=== PATIENT | female | born 1995 | race Caucasian/White ===

== ENCOUNTER 2018-01-24 09:23 | Inpatient (IN) | payer BC ==
[2018-01-24] MEDS ORDERED: Ondansetron 4 MG/2 ML SDV IVPUSH PRN ×2 (12:05→15:29)
[2018-01-24] MEDS ORDERED: Nalbuphine 20 MG/ML 1 ML Syringe IVPUSH PRN (12:05)
[2018-01-24] MEDS ORDERED: Sodium Chloride 0.9% 10 ML Syringe FLUSH PRN (12:05)
--- NOTE | 2018-01-24 12:07 | PCM.LDHP ---
L&D History of Present Illness - General Date of Service: 01/24/18 Admit Problem/Dx: Patient Status Order with Admit Dx/Problem 01/24/18 12:05 Patient Status [ADT] Routine Admission Diagnosis/Problem Admission Diagnosis/Problem Normal labor Source of Information: Patient History Limitations: Reports: No Limitations - History of Present Illness Introduction:: Patient is a 23 y/o at 38 5/7 wks who presents in labor. Contractions started early this AM. Have been getting closer together and more intense. No LOF yet. - Related Data Allergies/Adverse Reactions: Allergies Allergy/AdvReac Type Severity Reaction Status Date / Time Penicillins Allergy Anaphylactic Verified 01/24/18 11:22 Shock Home Medications: Home Meds Ferrous Sulfate [Iron] 1 tab PO DAILY 01/24/18 [History] [id number]/Iron Fumarate/FA/DSS [ 19 Tablet] 1 tab PO DAILY 01/24/18 [ History] Past Medical History - Past Health History Medical/Surgical History: Denies Medical/Surgical History Social & Family History - Tobacco Use Smoking Status *Q: Never Smoker - Alcohol Use Alcohol Use History: No - Recreational Drug Use Recreational Drug Use: No H&P Review of Systems - Review of Systems: Review Of Systems: See Below General: Reports: No Symptoms Pulmonary: Reports: No Symptoms Cardiovascular: Reports: No Symptoms Gastrointestinal: Reports: No Symptoms Genitourinary: Reports: No Symptoms Musculoskeletal: Reports: No Symptoms Psychiatric: Reports: No Symptoms Neurological: Reports: No Symptoms L&D Exam - Exam Exam: See Below - Vital Signs Weight: 81.193 kg - OB Specific Contraction Intensity: Moderate Movement: Active Heart Tones: Present Heart Tones per Min: 140 Heart Rate (FHR) Variability: Moderate (6-25 bmp) Presentation: Vertex - Padilla Score Padilla Score Cervix Position: Anterior Padilla Score Consistency: Soft Padilla Score Effacement: >80% Padilla Score Dilation: 3-4 cm Padilla Score 's Station: -1 ,0 Padilla Score Total: 11 - Exam General: Alert, Oriented, Cooperative Lungs: Clear to Auscultation Cardiovascular: Regular Rate, Regular Rhythm GI/Abdominal Exam: Soft, Non-Tender Genitourinary: Normal external exam Extremities: Normal Inspection Skin: Warm, Dry, Intact - Patient Data Result Diagrams: 01/24/18 12:29 - Problem List (1) 38 weeks gestation of SNOMED Code(s): 77363085 ICD Code: Z3A.38 - 38 WEEKS GESTATION OF Status: Acute Current Visit: Yes Problem List Initiated/Reviewed/Updated: Yes Orders Last 24hrs: Active Orders 24 hr Category Date Time Status Patient Status [ADT] Routine ADT 01/24/18 12:05 Ordered Activity as Tolerated [RC] PFP Care 01/24/18 12:05 Ordered Communication Order [RC] ASDIRECTED Care 01/24/18 12:05 Ordered Heart Tones [RC] ASDIRECTED Care 01/24/18 12:06 Ordered Non Stress Test [RC] PER UNIT ROUTINE Care 01/24/18 12:05 Ordered Notify Provider [RC] PFP Care 01/24/18 12:05 Ordered Notify Provider [RC] PRN Care 01/24/18 12:05 Ordered Peripheral IV Care [RC] . DIRECTED Care 01/24/18 12:06 Ordered Vital Signs [RC] PER UNIT ROUTINE Care 01/24/18 12:05 Ordered Regular Diet [DIET] Diet 01/24/18 Lunch Active CBC W/O DIFF,HEMOGRAM [HEME] Stat Lab 01/24/18 12:05 Ordered RAPID PLASMA REAGIN,RPR [CHEM] Routine Lab 01/24/18 12:05 Ordered TYPE AND SCREEN [BBK] Stat Lab 01/24/18 12:05 Ordered Lactated Ringers [Ringers, Lactated] 1,000 ml Med 01/24/18 12:15 Ordered IV ASDIRECTED Nalbuphine [Nubain] Med 01/24/18 12:05 Ordered 10 mg IVPUSH Q2H PRN Ondansetron [Zofran] Med 01/24/18 12:05 Ordered 4 mg IVPUSH Q4H PRN Oxytocin/Lactated Ringers [Pitocin in LR 10 Units/1,000 Med 01/24/18 12:15 Ordered ML] 10 unit in 1,000 ml IV .CONTINUOUS Sodium Chloride 0.9% [Saline Flush] Med 01/24/18 12:05 Ordered 10 ml FLUSH ASDIRECTED PRN Vancomycin [Vancocin] 1 gm Med 01/24/18 12:15 Ordered Sodium Chloride 0.9% [Normal Saline] 250 ml IV Q12H Electronic Heart Tones Ext w TOCO [WOMSER] Oth 09/15/18 12:05 Ordered Routine Electronic Heart Tones Internal [WOMSER] Per Unit Oth 01/24/18 12:05 Ordered Routine Peripheral IV Insertion Adult [OM.PC] Routine Ot 01/24/18 12:05 Ordered Resuscitation Status Routine Resus Stat 01/24/18 12:05 Ordered Assessment/Plan Comment:: 23 y/o at 38 5/7 wks presents in labor * Labs on admission * GBS positive, requires Vancomycin * Pain management per patient preference * Anticipate
[2018-01-24] MEDS ORDERED: Oxytocin/Lactated Ringers 10 UNIT/1,000 ML BAG IV SCH ×2 (12:15→23:45)
[2018-01-24] MEDS: Lactated Ringers 1,000 ML IV SCH ×4 (12:35→20:54)
[2018-01-24] MEDS ORDERED: ePHEDrine 50 MG/ML SDV IVPUSH PRN (15:29)
[2018-01-24] MEDS ORDERED: fentaNYL 100 MCG/2 ML SDV EPIDUR PRN (15:29)
[2018-01-24] MEDS ORDERED: Phenylephrine 1 MG in Sodium Chloride 0.9% 10 ML IV SCH (15:30)
[2018-01-24] MEDS ORDERED: Bupivacaine/fentaNYL/NS 100 ML Bag EPIDUR SCH (15:30)
--- NOTE | 2018-01-24 15:32 | PCM.PREANE ---
Preanesthetic Assessment - Anesthesia/Transfusion/Family Hx Anesthesia History: Prior Anesthesia Without Reaction Family History of Anesthesia Reaction: No Transfusion History: No Prior Transfusion(s) Intubation History: Unknown - Review of Systems General: No Symptoms Pulmonary: No Symptoms, Cough Cardiovascular: No Symptoms, Lightheadedness (with needle placement) Gastrointestinal: No Symptoms Neurological: No Symptoms Other: Reports: None, Easy Bruising - Physical Assessment NPO Status Date: 01/24/18 NPO Status Time: 13:00 Pulse: 79 O2 Sat by Pulse Oximetry: 99 Respiratory Rate: 16 Blood Pressure: 116/81 Temperature: 36.8 C Vital Signs: Last Vital Signs Temp 36.8 C 01/24/18 12:05 Pulse 79 01/24/18 12:05 Resp 16 01/24/18 12:05 BP 116/81 01/24/18 12:05 Pulse Ox 99 01/24/18 12:05 Height: 1.63 m Weight: 81.193 kg ASA Class: 2 Mental Status: Alert & Oriented x3 Airway Class: Mallampati = 2 Dentition: Reports: Normal Dentition, Caries Thyro-Mental Finger Breadths: 3 Mouth Opening Finger Breadths: 3 ROM/Head Extension: Full Lungs: Clear to Auscultation, Normal Respiratory Effort Cardiovascular: Regular Rate, Regular Rhythm, No Murmurs - Lab Values: Laboratory Last Values WBC 11.39 K/mm3 (3.98-10.04) H 01/24/18 12:29 RBC 4.51 M/mm3 (3.98-5.22) 01/24/18 12:29 Hgb 14.0 gm/L (11.2-15.7) 01/24/18 12:29 Hct 40.9 % (34.1-44.9) 01/24/18 12:29 MCV 90.7 fl (79.4-94.8) 01/24/18 12:29 MCH 31.0 pg (25.6-32.2) 01/24/18 12:29 MCHC 34.2 g/dl (32.2-35.5) 01/24/18 12:29 RDW Std Deviation 41.6 fL (36.4-46.3) 01/24/18 12:29 Plt Count 236 K/mm3 (182-369) 01/24/18 12:29 MPV 9.3 fl (9.4-12.3) L 01/24/18 12:29 Blood Type O POSITIVE 01/24/18 12:29 Gel Antibody Screen Negative 01/24/18 12:29 Above labs reviewed and noted and within acceptable ranges to proceed with epidural. 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: - Past Surgical History HEENT Surgical History: Reports: Oral Surgery Other HEENT Surgeries/Procedures: wisdom teeth extraction - SUBSTANCE USE Smoking Status *Q: Never Smoker Second Hand Smoke Exposure: No Recreational Drug Use History: No - HOME MEDS Home Medications: Home Meds Ferrous Sulfate [Iron] 1 tab PO DAILY 01/24/18 [History] [id number]/Iron Fumarate/FA/DSS [ 19 Tablet] 1 tab PO DAILY 01/24/18 [ History] - CURRENT (IN HOUSE) MEDS Current Meds: Current Medications Ephedrine Sulfate (Ephedrine Sulfate) 5 mg IVPUSH ASDIRECTED PRN PRN Reason: Hypotension Fentanyl (Sublimaze) 100 mcg EPIDUR Q3H PRN PRN Reason: Pain Fentanyl/Bupivacaine HCl (Fentanyl/Bupivacaine/Ns 2 Mcg-0.125% 100 Ml) 100 ml EPIDUR ASDIRECTED KAREN Lactated Ringer's (Ringers, Lactated) 1,000 mls @ 100 mls/hr IV ASDIRECTED KAREN Last Admin: 01/24/18 15:24 Dose: 999 mls/hr Oxytocin/Lactated Ringer's (Pitocin In Lr 10 Units/1,000 Ml) 10 unit in 1,000 mls @ 500 mls/hr IV .CONTINUOUS KAREN Vancomycin HCl 1 gm/ Sodium (Chloride) 250 mls @ 250 mls/hr IV Q12H KAREN Last Admin: 01/24/18 12:35 Dose: 250 mls/hr Phenylephrine HCl 1 mg/ Sodium (Chloride) 10.1 mls @ 1 mls/sec IV TITRATE KAREN; Protocol Nalbuphine HCl (Nubain) 10 mg IVPUSH Q2H PRN PRN Reason: pain Ondansetron HCl (Zofran) 4 mg IVPUSH Q4H PRN PRN Reason: Nausea/Vomiting Ondansetron HCl (Zofran) 4 mg IVPUSH ONETIME PRN PRN Reason: Nausea/Vomiting Sodium Chloride (Saline Flush) 10 ml FLUSH ASDIRECTED PRN PRN Reason: Keep Vein Open
--- NOTE | 2018-01-24 16:24 | PCM.PNLD ---
Labor Progress Note - VS & Meds Vital Signs: Last Vital Signs Temp 36.8 C 01/24/18 15:53 Pulse 79 01/24/18 15:53 Resp 16 01/24/18 15:53 BP 116/81 01/24/18 15:53 Pulse Ox 99 01/24/18 15:53 Active Medications: Current Medications Ephedrine Sulfate (Ephedrine Sulfate) 5 mg IVPUSH ASDIRECTED PRN PRN Reason: Hypotension Fentanyl (Sublimaze) 100 mcg EPIDUR Q3H PRN PRN Reason: Pain Last Admin: 01/24/18 15:42 Dose: 100 mcg Fentanyl/Bupivacaine HCl (Fentanyl/Bupivacaine/Ns 2 Mcg-0.125% 100 Ml) 100 ml EPIDUR ASDIRECTED KAREN Last Admin: 01/24/18 15:43 Dose: 100 ml Lactated Ringer's (Ringers, Lactated) 1,000 mls @ 100 mls/hr IV ASDIRECTED KAREN Last Admin: 01/24/18 16:17 Dose: 999 mls/hr Oxytocin/Lactated Ringer's (Pitocin In Lr 10 Units/1,000 Ml) 10 unit in 1,000 mls @ 500 mls/hr IV .CONTINUOUS KAREN Vancomycin HCl 1 gm/ Sodium (Chloride) 250 mls @ 250 mls/hr IV Q12H KAREN Last Admin: 01/24/18 12:35 Dose: 250 mls/hr Phenylephrine HCl 1 mg/ Sodium (Chloride) 10.1 mls @ 1 mls/sec IV TITRATE KAREN; Protocol Nalbuphine HCl (Nubain) 10 mg IVPUSH Q2H PRN PRN Reason: pain Ondansetron HCl (Zofran) 4 mg IVPUSH Q4H PRN PRN Reason: Nausea/Vomiting Ondansetron HCl (Zofran) 4 mg IVPUSH ONETIME PRN PRN Reason: Nausea/Vomiting Sodium Chloride (Saline Flush) 10 ml FLUSH ASDIRECTED PRN PRN Reason: Keep Vein Open - Uterine Contractions Uterine Monitoring Mode: External [place] Contraction Intensity: Moderate to Strong Uterine Resting Tone: Soft - Monitoring Monitor Mode: External Ultrasound Heart Rate (FHR) Baseline: 135 Heart Rate (FHR) Variability: Moderate (6-25 bmp) Accelerations: Present, 15x15 Decelerations: None Strip Review: Category I - Vaginal Exam Dilation (cm): 5 Effacement (Percent): 90 Station: -1 Cervical Position: Midposition - Labor Progress (Free Text) Labor Progress: Doing well. Just received epidural. AROM performed with release of clear fluid. Continue present management
[2018-01-24] MEDS ORDERED: Bupivacaine 0.25% 10 ML SDV ONE (22:00)
--- NOTE | 2018-01-25 00:56 | PCM.DEL ---
L & D Note - General Info Date of Service: 01/25/18 - Delivery Note Labor: Augmented by ARM Delivery Outcome: Livebirth Delivery Method: Spontaneous Vaginal Delivery-Single Infant Delivery Mode: Vacuum Extraction Presentation: Left Occiput Anterior (VERONICA) Nuchal Cord: None Anesthesia Type: Epidural Amniotic Fluid Description: Clear Episiotomy Type: None Laceration: 2nd Degree, Perineal Suture type: Vicryl Suture size: 2-0 Placenta: Intact, Spontaneous Cord: 3 Vessels Estimated Blood Loss: 350 Resuscitation Needed: Yes [place]: Bulb Syringe, Stimulated, Warmed, [place] Used, Warmer Used Score 1 min: 8 Score 5 min: 9 Delivery Comments (Free Text/Narrative):: The patient was pushing in the dorsal lithotomy position. head . At this point in delivery process there was a bradycardia down into the 60's. Given concerns for impending compromise the decision was made to proceed with vacuum assisted vaginal delivery. The mushroom cup was placed without difficulty. Subsequent vacuum assisted vaginal delivery with pushing over 3 minutes. Total pressure applied 550 mmHg. Total pop offs 0. Suction was removed following delivery of the head. No nuchal cord. The remainder of the delivered without difficulty. The umbilical cord was clamped and cut and the infant was taken to the warmer for further assessment. Cord segment obtained for cord gas. Cord blood obtained. Inspection of the perineum following delivery with a 2nd degree perineal laceration noted. This was repaired with a 2-0 vicryl in the typical fashion. Vacuum Extractor Progress Note - Alternative Labor Strategies Considered Alternative Labor Strategies Considered:: Reports: No Strategies Considered:: Reports: Contraction Intensity Adequate Indications Considered:: Reports: Yes Indications:: Reports: Suspicion of Immediate or Potential Compromise Time Out:: Reports: Yes - Patient Prepared Patient Prepared:: Reports: Yes Informed Consent:: Reports: Verbal Risks: Reports: Yes Risks Include:: Reports: Laceration, Shoulder Dystocia, Maternal Injury Anesthesia/Analgesia Adequate:: Reports: Yes - Probability of Success High Probability of Success:: Reports: Yes Weight Estimated:: Reports: AGA Patient Diabetic:: Reports: No Pelvis Adequate:: Reports: Yes Asynclitic:: Reports: No - Application Time Maximum Application Time & Number of Pop-Offs Predetermined:: Reports: Yes Maximum Pressure Maintained in [place] (cm Hg):: 550 Total Application Time (min): *max=20min: 3 Number of Times Cup Disengaged:: 1 Type of Vacuum Used:: Reports: Cup: Mushroom type - Exit Strategy Exit strategy available:: Reports: Yes and resuscitation teams readily available:: Reports: Yes - General Info Date of Service: 01/25/18 - Patient Data Vitals - Most Recent: Last Vital Signs Temp 36.8 C 01/24/18 15:53 Pulse 79 01/24/18 15:53 Resp 16 01/24/18 15:53 BP 116/81 01/24/18 15:53 Pulse Ox 99 01/24/18 15:53 Weight - Most Recent: 81.193 kg I&O - Last 24 Hours: Intake & Output 01/24/18 01/24/18 01/25/18 14:59 22:59 06:59 Intake Total 1250 3000 Balance 1250 3000 Lab Results Last 24 Hours: Laboratory Results - last 24 hr 01/24/18 01/24/18 Range/Units 12:29 12:29 WBC 11.39 H (3.98-10.04) K/mm3 RBC 4.51 (3.98-5.22) M/mm3 Hgb 14.0 (11.2-15.7) gm/L Hct 40.9 (34.1-44.9) % MCV 90.7 (79.4-94.8) fl MCH 31.0 (25.6-32.2) pg MCHC 34.2 (32.2-35.5) g/dl RDW Std Deviation 41.6 (36.4-46.3) fL Plt Count 236 (182-369) K/mm3 MPV 9.3 L (9.4-12.3) fl Blood Type O POSITIVE Gel Antibody Screen Negative Med Orders - Current: Current Medications Ephedrine Sulfate (Ephedrine Sulfate) 5 mg IVPUSH ASDIRECTED PRN PRN Reason: Hypotension Fentanyl (Sublimaze) 100 mcg EPIDUR Q3H PRN PRN Reason: Pain Last Admin: 01/24/18 15:42 Dose: 100 mcg Fentanyl/Bupivacaine HCl (Fentanyl/Bupivacaine/Ns 2 Mcg-0.125% 100 Ml) 100 ml EPIDUR ASDIRECTED KAREN Last Admin: 01/24/18 15:43 Dose: 100 ml Lactated Ringer's (Ringers, Lactated) 1,000 mls @ 100 mls/hr IV ASDIRECTED KAREN Last Admin: 01/24/18 20:54 Dose: 999 mls/hr Oxytocin/Lactated Ringer's (Pitocin In Lr 10 Units/1,000 Ml) 10 unit in 1,000 mls @ 500 mls/hr IV .CONTINUOUS KAREN Vancomycin HCl 1 gm/ Sodium (Chloride) 250 mls @ 250 mls/hr IV Q12H KAREN Last Admin: 01/25/18 00:28 Dose: 250 mls/hr Phenylephrine HCl 1 mg/ Sodium (Chloride) 10.1 mls @ 1 mls/sec IV TITRATE KAREN; Protocol Oxytocin/Lactated Ringer's (Pitocin In Lr 10 Units/1,000 Ml) 10 unit in 1,000 mls @ 12 mls/hr IV TITRATE KAREN; Protocol Last Admin: 01/24/18 23:46 Dose: 2 munits/min, 12 mls/hr Nalbuphine HCl (Nubain) 10 mg IVPUSH Q2H PRN PRN Reason: pain Ondansetron HCl (Zofran) 4 mg IVPUSH Q4H PRN PRN Reason: Nausea/Vomiting Ondansetron HCl (Zofran) 4 mg IVPUSH ONETIME PRN PRN Reason: Nausea/Vomiting Sodium Chloride (Saline Flush) 10 ml FLUSH ASDIRECTED PRN PRN Reason: Keep Vein Open - Problem List & Annotations (1) 38 weeks gestation of SNOMED Code(s): 44076024 Code(s): Z3A.38 - 38 WEEKS GESTATION OF Status: Acute Current Visit: Yes (2) Status post vacuum-assisted vaginal delivery SNOMED Code(s): 715067931, 37176710789457913 Code(s): Z87.42 - PERSONAL HISTORY OF OTH DISEASES OF THE FEMALE GENITAL TRACT Status: Acute Current Visit: Yes - Problem List Review Problem List Initiated/Reviewed/Updated: Yes - My Orders Last 24 Hours: My Active Orders 01/24/18 12:05 Patient Status [ADT] Routine Activity as Tolerated [RC] PFP Communication Order [RC] ASDIRECTED Notify Provider [RC] PFP Notify Provider [RC] PRN Vital Signs [RC] PER UNIT ROUTINE Nalbuphine [Nubain] 10 mg IVPUSH Q2H PRN Ondansetron [Zofran] 4 mg IVPUSH Q4H PRN Sodium Chloride 0.9% [Saline Flush] 10 ml FLUSH ASDIRECTED PRN Electronic Heart Tones Ext w TOCO [WOMSER] Routine Electronic Heart Tones Internal [WOMSER] Per Unit Routine Peripheral IV Insertion Adult [OM.PC] Routine Resuscitation Status Routine 01/24/18 12:06 Heart Tones [RC] ASDIRECTED Peripheral IV Care [RC] . DIRECTED 01/24/18 12:15 Lactated Ringers [Ringers, Lactated] 1,000 ml IV ASDIRECTED Oxytocin/Lactated Ringers [Pitocin in LR 10 Units/1,000 ML] 10 unit in 1,000 ml IV .CONTINUOUS 01/24/18 12:29 RAPID PLASMA REAGIN,RPR [CHEM] Routine 01/24/18 13:00 Vancomycin [Vancocin] 1 gm Sodium Chloride 0.9% [Normal Saline] 250 ml IV Q12H 01/24/18 23:45 Oxytocin/Lactated Ringers [Pitocin in LR 10 Units/1,000 ML] 10 unit in 1,000 ml IV TITRATE 01/24/18 Lunch Regular Diet [DIET] 01/25/18 00:55 BLOOD GAS VENOUS UMBILICAL [BG] Routine - Assessment Assessment:: 23 y/o G1 now P1001 PPD#0 from VAVD at 38 6/7 wks - Plan Plan:: VAVD * Routine cares * Encourage breast feeding * Discharge home in 1-2 days
[2018-01-25] MEDS ORDERED: Lanolin 100% Cream 7 GM Tube TOP PRN (01:34)
[2018-01-25] MEDS ORDERED: Witch Hazel Medicated Pads 100/Jar TOP PRN (01:34)
[2018-01-25] MEDS ORDERED: Ibuprofen 600 MG Tab PO PRN (01:34)
[2018-01-25] MEDS ORDERED: Acetaminophen 325 MG Tab PO PRN (01:34)
[2018-01-25] MEDS: Benzocaine/Menthol 20%-0.5% Spray 56 GM Canister TOP PRN (02:31)
[2018-01-25] MEDS: Docusate Sodium 100 MG Cap PO PRN (13:11)
--- NOTE | 2018-01-25 16:29 | PCM48HPAN ---
Post Anesthesia Note - EVALUATION WITHIN 48HRS OF ANESTHETIC Vital Signs in Normal Range: Yes Patient Participated in Evaluation: Yes Respiratory Function Stable: Yes Airway Patent: Yes Cardiovascular Function Stable: Yes Hydration Status Stable: Yes Pain Control Satisfactory: Yes Nausea and Vomiting Control Satisfactory: Yes Mental Status Recovered: Yes - COMMENTS/OBSERVATIONS Free Text/Narrative:: Patient c/o left lateral thigh pain that is exacerbated with ambulation. Patient states positioned in lithotomy for 5 hours while pushing. Patient reassured and educated on potential nerve injury from either/or positioning or epidural. No parestheia's or difficulties noted with epidural insertion. Patient encouraged to follow up with physical therapy if symptoms don't resolve in a few weeks. Thank you, Alejandro
--- NOTE | 2018-01-26 06:53 | PCM.DCSUM1 ---
Discharge Summary - Discharge Data Discharge Date: 01/26/18 Discharge Disposition: Home, Self-Care 01 Condition: Good - Discharge Diagnosis/Problem(s) (1) 38 weeks gestation of SNOMED Code(s): 88261924 ICD Code: Z3A.38 - 38 WEEKS GESTATION OF Status: Acute Current Visit: Yes (2) Status post vacuum-assisted vaginal delivery SNOMED Code(s): 272699444, [id number] ICD Code: Z87.42 - PERSONAL HISTORY OF OTH DISEASES OF THE FEMALE GENITAL TRACT Status: Acute Current Visit: Yes - Patient Summary/Data Complications: None Consults: Consultations 01/25/18 04:49 Consult to Case Management/Establishment Guide [CONS] Routine Recommended Follow-up Testing/Procedures: Follow up in 3-6 weeks for check Hospital Course: 23 y/o at 38 5/7 wks presented in labor. She progressed well. Underwent a VAVD for bradycardia to 60's. See delivery note for full details. she did well and desired discharge to home on PPD#1. This was felt reasonable and so done - Patient Instructions Diet: Regular Diet as Tolerated Activity: As Tolerated Activity, Other: Pelvic Rest for 6 weeks Driving: May Drive Today Showering/Bathing: May Shower Showering/Bathing, Other: May Bathe Notify Provider of: Fever, Increased Pain, Swelling and Redness, Drainage, Nausea and/or Vomiting - Discharge Plan *PRESCRIPTION DRUG MONITORING PROGRAM REVIEWED*: Not Applicable *COPY OF PRESCRIPTION DRUG MONITORING REPORT IN PATIENT MAU: Not Applicable Home Medications: Home Meds [id number]/Iron Fumarate/FA/DSS [ 19 Tablet] 1 tab PO DAILY 01/24/18 [ History] Docusate Sodium [Colace] 100 mg PO BID PRN cap 01/25/18 [Rx] Ibuprofen [Motrin] 600 mg PO Q6H PRN tablet 01/25/18 [Rx] Referrals: Tatiana Justin MD [Primary Care Provider] - (3-6 weeks for check ) - Discharge Summary/Plan Comment DC Time >30 min.: No - Patient Data Vitals - Most Recent: Last Vital Signs Temp 36.7 C 01/26/18 03:39 Pulse 65 01/26/18 03:39 Resp 17 01/26/18 03:39 BP 94/60 01/26/18 03:39 Pulse Ox 98 01/26/18 03:39 Weight - Most Recent: 81.193 kg I&O - Last 24 hours: Intake & Output 01/25/18 01/25/18 01/26/18 14:59 22:59 06:59 Intake Total 300 Balance 300 Med Orders - Current: Current Medications Acetaminophen (Tylenol) 650 mg PO Q4H PRN PRN Reason: mild pain or fever Benzocaine/Menthol (Dermoplast Pain Relief [place]) 0 gm TOP ASDIRECTED PRN PRN Reason: Perineal Comfort Measure Last Admin: 01/25/18 02:31 Dose: 1 canister Docusate Sodium (Colace) 100 mg PO BID PRN PRN Reason: Constipation Last Admin: 01/25/18 13:11 Dose: 100 mg Emollient Ointment (Lansinoh Hpa) 0 gm TOP ASDIRECTED PRN PRN Reason: Sore Nipples Ibuprofen (Motrin) 600 mg PO Q6H PRN PRN Reason: Mild pain or fever Last Admin: 01/25/18 02:30 Dose: 600 mg [place] (Tucks) 1 pad TOP ASDIRECTED PRN PRN Reason: Hemorrhoid pain Last Admin: 01/25/18 02:31 Dose: 1 container Discontinued Medications Ephedrine Sulfate (Ephedrine Sulfate) 5 mg IVPUSH ASDIRECTED PRN PRN Reason: Hypotension Fentanyl (Sublimaze) 100 mcg EPIDUR Q3H PRN PRN Reason: Pain Last Admin: 01/24/18 15:42 Dose: 100 mcg Fentanyl/Bupivacaine HCl (Fentanyl/Bupivacaine/Ns 2 Mcg-0.125% 100 Ml) 100 ml EPIDUR ASDIRECTED KAREN Last Admin: 01/24/18 15:43 Dose: 100 ml Lactated Ringer's (Ringers, Lactated) 1,000 mls @ 100 mls/hr IV ASDIRECTED KAREN Last Admin: 01/24/18 20:54 Dose: 999 mls/hr Oxytocin/Lactated Ringer's (Pitocin In Lr 10 Units/1,000 Ml) 10 unit in 1,000 mls @ 500 mls/hr IV .CONTINUOUS [facility] Vancomycin HCl 1 gm/ Sodium (Chloride) 250 mls @ 250 mls/hr IV Q12H [facility] Last Admin: 09/16/18 00:28 Dose: 250 mls/hr Phenylephrine HCl 1 mg/ Sodium (Chloride) 10.1 mls @ 1 mls/sec IV TITRATE KAREN; Protocol Oxytocin/Lactated Ringer's (Pitocin In Lr 10 Units/1,000 Ml) 10 unit in 1,000 mls @ 12 mls/hr IV TITRATE KAREN; Protocol Last Admin: 01/24/18 23:46 Dose: 2 munits/min, 12 mls/hr Nalbuphine HCl (Nubain) 10 mg IVPUSH Q2H PRN PRN Reason: pain Ondansetron HCl (Zofran) 4 mg IVPUSH Q4H PRN PRN Reason: Nausea/Vomiting Ondansetron HCl (Zofran) 4 mg IVPUSH ONETIME PRN PRN Reason: Nausea/Vomiting Sodium Chloride (Saline Flush) 10 ml FLUSH ASDIRECTED PRN PRN Reason: Keep Vein Open
--- NOTE | 2018-01-26 06:53 | PCM.PNPP ---
- General Info Date of Service: 01/26/18 Functional Status: Reports: Pain Controlled, Tolerating Diet, Ambulating, Urinating - Review of Systems General: Reports: No Symptoms Pulmonary: Reports: No Symptoms Cardiovascular: Reports: No Symptoms Gastrointestinal: Reports: No Symptoms Genitourinary: Reports: No Symptoms Musculoskeletal: Reports: No Symptoms - Patient Data Vital Signs - Most Recent: Last Vital Signs Temp 36.7 C 01/26/18 03:39 Pulse 65 01/26/18 03:39 Resp 17 01/26/18 03:39 BP 94/60 01/26/18 03:39 Pulse Ox 98 01/26/18 03:39 Weight - Most Recent: 81.193 kg I&O - Last 24 Hours: Intake & Output 01/25/18 01/25/18 01/26/18 14:59 22:59 06:59 Intake Total 300 Balance 300 Med Orders - Current: Current Medications Acetaminophen (Tylenol) 650 mg PO Q4H PRN PRN Reason: mild pain or fever Benzocaine/Menthol (Dermoplast Pain Relief Casey) 0 gm TOP ASDIRECTED PRN PRN Reason: Perineal Comfort Measure Last Admin: 01/25/18 02:31 Dose: 1 canister Docusate Sodium (Colace) 100 mg PO BID PRN PRN Reason: Constipation Last Admin: 01/25/18 13:11 Dose: 100 mg Emollient Ointment (Lansinoh Hpa) 0 gm TOP ASDIRECTED PRN PRN Reason: Sore Nipples Ibuprofen (Motrin) 600 mg PO Q6H PRN PRN Reason: Mild pain or fever Last Admin: 01/25/18 02:30 Dose: 600 mg Witch Asiya (Tucks) 1 pad TOP ASDIRECTED PRN PRN Reason: Hemorrhoid pain Last Admin: 01/25/18 02:31 Dose: 1 container Discontinued Medications Ephedrine Sulfate (Ephedrine Sulfate) 5 mg IVPUSH ASDIRECTED PRN PRN Reason: Hypotension Fentanyl (Sublimaze) 100 mcg EPIDUR Q3H PRN PRN Reason: Pain Last Admin: 01/24/18 15:42 Dose: 100 mcg Fentanyl/Bupivacaine HCl (Fentanyl/Bupivacaine/Ns 2 Mcg-0.125% 100 Ml) 100 ml EPIDUR ASDIRECTED KAREN Last Admin: 01/24/18 15:43 Dose: 100 ml Lactated Ringer's (Ringers, Lactated) 1,000 mls @ 100 mls/hr IV ASDIRECTED KAREN Last Admin: 01/24/18 20:54 Dose: 999 mls/hr Oxytocin/Lactated Ringer's (Pitocin In Lr 10 Units/1,000 Ml) 10 unit in 1,000 mls @ 500 mls/hr IV .CONTINUOUS KAREN Vancomycin HCl 1 gm/ Sodium (Chloride) 250 mls @ 250 mls/hr IV Q12H KAREN Last Admin: 01/25/18 00:28 Dose: 250 mls/hr Phenylephrine HCl 1 mg/ Sodium (Chloride) 10.1 mls @ 1 mls/sec IV TITRATE KAREN; Protocol Oxytocin/Lactated Ringer's (Pitocin In Lr 10 Units/1,000 Ml) 10 unit in 1,000 mls @ 12 mls/hr IV TITRATE KAREN; Protocol Last Admin: 01/24/18 23:46 Dose: 2 munits/min, 12 mls/hr Nalbuphine HCl (Nubain) 10 mg IVPUSH Q2H PRN PRN Reason: pain Ondansetron HCl (Zofran) 4 mg IVPUSH Q4H PRN PRN Reason: Nausea/Vomiting Ondansetron HCl (Zofran) 4 mg IVPUSH ONETIME PRN PRN Reason: Nausea/Vomiting Sodium Chloride (Saline Flush) 10 ml FLUSH ASDIRECTED PRN PRN Reason: Keep Vein Open - Infant Interaction Infant Disposition, : in Room with Family Interaction: Holding Infant Feeding: Attempted ; Nursed Fair/Poor Support Person: Mother - Recovery Exam Fundal Tone: Firm Fundal Level: 1 Fingerbreadths Below Umbilicus Fundal Placement: Midline Lochia Amount: Scant, Small Lochia Color: Rubra/Red Episiotomy/Laceration: Approximated Bladder Status: Voiding Urinary Elimination: Voided - Exam General: Alert, Oriented, Cooperative GI/Abdominal Exam: Soft, Non-Tender Extremities: Normal Inspection, Pedal Edema Skin: Warm, Dry, Intact - Problem List & Annotations (1) 38 weeks gestation of SNOMED Code(s): 66963208 Code(s): Z3A.38 - 38 WEEKS GESTATION OF Status: Acute Current Visit: Yes (2) Status post vacuum-assisted vaginal delivery SNOMED Code(s): 977162954, [id number] Code(s): Z87.42 - PERSONAL HISTORY OF OTH DISEASES OF THE FEMALE GENITAL TRACT Status: Acute Current Visit: Yes - Problem List Review Problem List Initiated/Reviewed/Updated: Yes - My Orders Last 24 Hours: My Active Orders 01/25/18 Breakfast Regular Diet [DIET] 01/26/18 01:34 Heat Therapy [OM.PC] PRN 01/26/18 06:52 Ready for Discharge [RC] PER UNIT ROUTINE - Assessment Assessment:: 23 y/o G1 now P1001 PPD#1 from [facility] at 38 6/7 wks - Plan Plan:: [facility] * Routine cares * Encourage breast feeding * Discharge home today per patient preference
[2018-01-26] MEDS: Docusate Sodium 100 MG Cap PO PRN (09:45)
[2018-01-26] MEDS: Benzocaine/Menthol 20%-0.5% Spray 56 GM Canister TOP PRN (15:41)
== END 2018-01-26 17:25 | disposition home or self-care (01) | DRG 560 ==
LOC: JD.OBCHECK 09:23 → JD.OB 09:24 → JD.OBCHECK 12:05 → OBSVTOIN 01-25 00:35 → JD.OB 01-25 00:36
PROVIDERS: ADMIT Obstetrics & Gynecology; ATTEND Obstetrics & Gynecology
PROC: 10907ZC Drainage of Amniotic Fluid, Therapeutic from Products of Conception, Via Natural or Artificial Opening (ICD-10-PCS; 2018-01-24)
PROC: 00HU33Z Insertion of Infusion Device into Spinal Canal, Percutaneous Approach (ICD-10-PCS; 2018-01-24)
PROC: 3E0R3BZ Introduction of Anesthetic Agent into Spinal Canal, Percutaneous Approach (ICD-10-PCS; 2018-01-24)
PROC: 10D07Z6 Extraction of Products of Conception, Vacuum, Via Natural or Artificial Opening (ICD-10-PCS; principal; 2018-01-25)
PROC: 6A550ZT Pheresis of Cord Blood Stem Cells, Single (ICD-10-PCS; 2018-01-25)
PROC: 0KQM0ZZ Repair Perineum Muscle, Open Approach (ICD-10-PCS; 2018-01-25)
DX: O99.824 Streptococcus B carrier state complicating childbirth (principal); Z88.0 Allergy status to penicillin; Z3A.38 38 weeks gestation of pregnancy; Z37.0 Single live birth; O76 Abnormality in fetal heart rate and rhythm complicating labor and delivery; O70.1 Second degree perineal laceration during delivery; O90.89 Other complications of the puerperium, not elsewhere classified; M79.652 Pain in left thigh
CPT/HCPCS: 01967; 36415; 51702; 59025; 59300; 59409; 82803; 85027; 86592; 86850; 86900; 86901; A9270-GY; J2590; J3010; J3370; J3490; J7050; J7120